=== PATIENT | female | born 1935 | race Caucasian/White ===

== ENCOUNTER 2018-03-23 16:04 | Emergency (ER) | payer MEDICARE ==
--- NOTE | 2018-03-23 21:04 | RAD ---
CHEST TWO VIEWS: 03/23/18 An area of opacity is seen in the base of the right lung medially. I cannot tell if this infiltrate, fat pad or other markings. Given the clinical history, I would treat it as a possible infection and t hen followup with a posttreatment chest x-ray in a few weeks to recheck the area. If it does no alvarez e, then a CT might be necessary. The left lung is clear. The heart is normal in size. There is no vas cular congestion or edema. Degenerative changes are seen in the spine. IMPRESSION: Right lower lobe haziness medially. See above. Code T POS: HOME
== END 2018-03-23 16:54 | disposition home or self-care (01) ==
LOC: BURERS 16:04
DX: J30.9 Allergic rhinitis, unspecified (principal); E78.5 Hyperlipidemia, unspecified; I10 Essential (primary) hypertension
CPT/HCPCS: 71046

== ENCOUNTER 2018-04-23 16:41 | Emergency (ER) | payer MEDICARE ==
[2018-04-23] MEDS ORDERED: hydrALAZINE 20 MG/ML VIAL ONE (17:08)
[2018-04-23 17:21] LABS: Clarity Clear (Clear)
[2018-04-23 17:22] LABS: Bilirubin Negative (Negative); Blood, Urine Large (Negative); Glucose, Urine (Dipstick) Negative (Negative); Leukocyte Trace (Negative); Nitrite Negative (Negative); Protein, Urine (Dipstick) 100 mg/dL (Neg-Trace); Urobilinogen 0.2 mg/dL (0.2-1.0)
[2018-04-23 17:24] LABS: %Eosinophils 1.5 % (0.0-10.0); %Lymphocytes 11.5 % (21.0-51.0); %Monocytes 2.6 % (0.0-10.0); %Neutrophils 83.9 % (42.0-75.0); Hemoglobin 9.9 g/dL (12.0-16.0); Manual Diff?? YES; Mean Corpuscular HGB CONC 36.3 g/dL (32.0-36.0); Mean Corpuscular Hemoglobin 28.9 pg (27.0-31.0); Mean Corpuscular Volume 79.7 fL (81.0-99.0); Mean Platelet Volume 4.9 fL (7.4-10.4); Platelet Count 473 thou/uL (130-400); RBC Distribution Width 12.4 % (11.5-14.5); Red Blood Cell (RBC) Count 3.43 mill/uL (4.20-5.40)
[2018-04-23 17:25] LABS: #Basophils 0.1 thou/uL (0.0-0.2); #Eosinphils 0.3 thou/uL (0.0-0.7); #Monocytes 0.4 thou/uL (0.11-0.59); #Neutrophils 14.3 thou/uL (1.40-6.50); %Basophils 0.5 % (0.0-1.0); MDiff Complete? YES
[2018-04-23 17:29] LABS: Bacteria/HPF Rare-Few HPF (None Seen); Squamous Epithelial 0-3 HPF (0-3)
[2018-04-23 17:30] LABS: WBC/HPF 0-3 HPF (0-3)
[2018-04-23 17:36] LABS: CKMB 1.5 ng/mL (0-6.6); Troponin I 0.036 ng/mL (< 0.028)
[2018-04-23 17:39] LABS: ALT (SGPT) 36 U/L (8-55); AST (SGOT) 35 U/L (5-34); Albumin 2.7 g/dL (3.4-4.8); Alkaline Phosphatase 125 U/L (40-150); Anion Gap 20 mmol/L (10-20); BUN (Urea Nitrogen) 94 mg/dL (9.8-20.1); Bilirubin, Total 0.4 mg/dL (0.2-1.2); CK (CPK) 26 U/L (29-168); Calc. Creatinine Clearance 0 mL/min (70-130); Carbon Dioxide 26 mmol/L (23-31); Chloride 89 mmol/L (98-107); Estimated GFR-MDRD 6; Globulin 4.9 g/dL (2.4-3.5); Glucose 121 mg/dL (83-110); Potassium 3.8 mmol/L (3.5-5.1); Protein, Total 7.6 g/dL (6.0-8.3); Sodium 131 mmol/L (136-145)
[2018-04-23] MEDS ORDERED: Nitroglycerin 2% Ointment 1 INCH/1 GM Packet ONE (17:40)
[2018-04-23] MEDS ORDERED: Nitroglycerin 0.4 MG TAB (25 Tab Bottle) ONE (17:41)
--- NOTE | 2018-04-23 20:14 | RAD ---
AP PORTABLE CHEST: 04/23/2018 1654 HOURS COMPARISON: 03/23/2018 FINDINGS: Mild cardiomegaly is present. While the upper lobe vessels are marginally more prominent than they w ere before, there is certainly no pulmonary edema or significant pleural effusion. The lungs are magdiel ar. The trachea is midline. IMPRESSION: 1. Borderline heart size. 2. Equivocal prominence of upper lobe vessels. Serial follow-up chest film might be helpful. POS: HOME
== END 2018-04-23 18:37 | disposition short-term general hospital (02) ==
LOC: BURERS 16:41
DX: N17.9 Acute kidney failure, unspecified (principal); I11.0 Hypertensive heart disease with heart failure; I50.9 Heart failure, unspecified; R79.89 Other specified abnormal findings of blood chemistry; Z79.84 Long term (current) use of oral hypoglycemic drugs; Z79.899 Other long term (current) drug therapy
CPT/HCPCS: 36415; 51701; 71045; 80053; 81003; 81015; 82553; 83880; 84443; 84484; 85025; 87040; 87086; 93005; 94760; 96361; 96374; J0360